=== PATIENT | male | born 1975 | race Caucasian/White ===

== ENCOUNTER 2017-10-24 19:07 | Emergency (ER) | payer OTHER ==
[~2017-10-24] VITALS: Ht 180.3 cm; Wt 124.7 kg
[~2017-10-24 19:07] MED LIST: FIORICET 50-301 EACH PO
--- NOTE | 2017-10-24 19:45 | ED CARDIAC/CP/PALPITATIONS ---
History of Present Illness General Chief Complaint: Chest Pain Stated Complaint: PT IS HAVING CHEST PAIN Source: patient Exam Limitations: no limitations Vital Signs & Intake/Output Vital Signs & Intake/Output Vital Signs Date Time Temp Pulse Resp B/P B/P Pulse O2 O2 Flow FiO2 Mean Ox Delivery Rate 10/24 2241 97.4 68 16 132/88 97 Room Air 10/24 2102 72 16 124/86 97 Room Air 10/24 2037 72 16 130/88 98 Room Air 10/24 2021 97.2 73 18 150/100 10/24 1950 97 10/24 1950 73 18 150/100 97 Room Air 10/24 1920 97.2 86 18 140/120 97 Room Air ED Intake and Output 10/25 0000 10/24 1200 Intake Total Output Total Balance Patient 275 lb Weight Weight Reported by Patient Measurement Method Allergies Coded Allergies: No Known Drug Allergies (08/04/16) Reconcile Medications Lisinopril 10 MG TABLET 1 TAB PO DAILY HYPERTENSION Methadone Hydrochloride (Methadone HCl) 10 MG TABLET 90 MG PO DAILY SUBSTANCE ABUSE (Reported) Triage Note: PT FROM HOME C/O CP THAT BEGAN 1 HR PRIOR TO PT ARRIVAL. PT STATES HE WAS SITTING ON HIS COUCH WHEN A SHARP SHOOTING CP THAT RADIATING "UP MY THROAT TO BOTH SIDES OF MY JAW" BEGAN. PT DENIES BILATERAL ARM NUMBESS/TINGLING, DENIES BACK BACK, DENIES N/V. PT STATES MINIMAL SOB THAT STARTED LAST NIGHT WHILE SLEEPING "BUT I DO HAVE SLEEP APNEA". PT IS ON METHADONE DAILY, LAST DOSE 80MG AROUND 0900 THIS MORNING. PTS BP IN TRIAGE ELEVATED 140/120 MANUALLY. PT TO ALCOVE FROM EKG. PTS HR 86, 97% ON RA. Triage Nurses Notes Reviewed? yes Onset: Abrupt Duration: better Timing: single episode today Location: substernal Radiation: neck Activities at Onset: none HPI: Patient is a 42-year-old male the past medical history of polysubstance abuse and IV drug use remotely in which patient currently is on methadone, history of obstructive sleep apnea who does not have a CPAP machine who presents emergency room seen at for approximately 2-3 months he's had once a week chest pain that lasts for approximately 6-8 hours that goes away on its own patient has not had associated symptoms with his discomfort however last week he followed up with his primary care doctor receive EKG with unremarkable findings, today patient states that 2 hours prior to arrival while at rest patient had acute onset of substernal chest tightness with radiation of discomfort and throbbing sensation to his throat and was diaphoretic and dizzy patient states that upon arrival to the emergency room his symptoms have significantly improved, patient did not take any medications for his symptoms Patient denies any history of DVT or PE denies any recent travel recent surgery leg swelling hemoptysis shortness of breath cough back pain nausea vomiting abdominal pain Patient is a former smoker denies any alcohol use Past History Travel History Traveled to [place] past 21 day No Medical History Any Pertinent Medical History? see below for history Musculoskeletal: ARTHITIS IN BACK Other Medical Hx: OBSTRUCTIVE SLEEP APNEA Surgical History Surgical History: non-contributory Psychosocial History What is your primary language Estonian Tobacco Use: Current Daily Use Daily Tobacco Use Amount/Type: Smokeless tobacco daily ETOH Use: denies use Illicit Drug Use: denies illicit drug use Family History Hx Contributory? No Review of Systems Review of Systems Constitutional: Reports: no symptoms. EENTM: Reports: see HPI. Respiratory: Reports: see HPI. Cardiovascular: Reports: see HPI. GI: Reports: no symptoms. Genitourinary: Reports: no symptoms. Musculoskeletal: Reports: no symptoms. Skin: Reports: no symptoms. Neurological/Psychological: Reports: no symptoms. Hematologic/Endocrine: Reports: no symptoms. Immunologic/Allergic: Reports: no symptoms. All Other Systems: Reviewed and Negative Physical Exam Physical Exam General Appearance: no apparent distress, obese Head: atraumatic Eyes: Bilateral: normal appearance, PERRL, EOMI. Ears, Nose, Throat: normal pharynx, normal ENT inspection Neck: normal inspection, supple Respiratory: normal breath sounds, chest non-tender, no respiratory distress Cardiovascular: regular rate/rhythm Peripheral Pulses: 2+ radial (R) Gastrointestinal: normal bowel sounds, soft, non-tender Extremities: normal inspection, normal capillary refill, no edema Skin: intact, normal color, warm/dry Core Measures ACS in differential dx? Yes CVA/TIA Diagnosis No Sepsis Present: No Sepsis Focused Exam Completed? No Progress Differential Diagnosis: AMI, aortic dissection, atrial fibrillation, cholecystitis, CHF/pulm edema, costochondritis, hyperkalemia, hypovolemia, hyperthyroid, hyperventilation, intracranial hemorrhage, musculoskeletal pain, myocarditis, pancreatitis, pericarditis, pneumonia, pneumothorax, PSVT, pulmonary embolism, PUD/GERD, PVCs/PACs, respiratory failure, rib fracture, sepsis, unstable angina, V-fib/V-Tach, WPW syndrome Plan of Care: Orders Procedure Date/time Status TROPONIN LEVEL 10/24 2354 Complete EKG 10/24 2354 Active Telemetry/Salesperson Burial Needs 10/24 1955 Active TROPONIN LEVEL 10/24 1914 Complete PROTHROMBIN TIME 10/24 1914 Complete COMPREHENSIVE METABOLIC PANEL 10/24 1914 Complete CBC WITHOUT DIFFERENTIAL 10/24 1914 Complete EKG 10/24 1908 Active Laboratory Tests 10/25/17 0012: Troponin I < 0.01 10/24/172100: Anion Gap 12, Estimated GFR > 60, BUN/Creatinine Ratio 21.3, Glucose 95, Calcium 9.0, Total Bilirubin 0.2, AST 23, ALT 45, Alkaline Phosphatase 97, Troponin I < 0.01, Total Protein 6.9, Albumin 4.0, Globulin 2.9, Albumin/Globulin Ratio 1.4 10/24/172004: PT 11.5, INR 1.10, CBC w Diff NO MAN DIFF REQ, RBC 4.92, MCV 88.3, MCH 29.5, RDW 13.6, MPV 6.9 L, Gran % 38.1 L, Lymphocytes % 53.7 H, Monocytes % 5.8, Eosinophils % 2.0, Basophils % 0.4, Absolute Granulocytes 4.2, Absolute Lymphocytes 5.9 H, Absolute Monocytes 0.6, Absolute Eosinophils 0.2, Absolute Basophils 0, PUBS MCHC 33.4 Patient on initial examination was resting comfortably at bedside and denies any chest pain however bus driver/monitor placed patient was therapeutically administered aspirin Patient will receive second set troponin PERC ZERO 2129- patient was reevaluated no apparent distress and DENIES any chest pain asymptomatic 2255- PATIENT WAS RE-EVALUATED NAD, patient denies any symptoms no chest pain bus driver/monitor still indicates normal sinus rhythm Blood pressure is normotensive 0024- patient again resting complete bedside no apparent distress asymptomatic repeat EKG unremarkable repeat troponin pending Patient was strongly advised to follow up with cardiology and to begin lisinopril and to return to emergency room if symptoms worsen Repeat troponin was unremarkable upon discharge patient looks WELL,NAD and will comply with discharge instructions and had no questions Diagnostic Imaging: Viewed by Me: CT Scan. CXR Impression: no acute abnormality, no infiltrates Initial ED EKG: NSR 75 BPM Repeat EKG: unchanged (77 BPM,NSR) Comments: PATIENT: ELEONORA DASILVA PRESENT AGE: 42 PATIENT ACCOUNT NO: [id number] : 74 LOCATION: [facility] ORDERING PHYSICIAN: Billy JHA SERVICE DATE: 10/24/17 EXAM TYPE: RAD - XRY-CHEST XRAY, TWO VIEWS EXAMINATION: XR CHEST 2 VIEWS CLINICAL INFORMATION: Chest pain. COMPARISON: None. TECHNIQUE: Frontal and lateral views of the chest were obtained. FINDINGS: The heart, great vessels, pulmonary vasculature and mediastinum are normal. The lungs show no focal infiltrate, effusion or pneumothorax. There is no acute osseous abnormality. IMPRESSION: No active cardiopulmonary disease. DICTATED BY: Horacio Ferro MD Departure Departure Disposition: HOME OR SELF CARE Condition: Stable Clinical Impression Primary Impression: Chest pain Secondary Impressions: Hypertension Referrals: Patient Has No Primary Care Dr (PCP/Family) Additional Instructions: As discussed if symptoms worsen or if YOU develop new concerning symptom return to emergency him, please follow-up with log feeder Dr. Cedillo for further evaluation treatment on Thursday Begin the prescription of lisinopril as directed to improve your blood pressure Prescriptions waiting at [facility] Departure Forms: Customer Survey General Discharge Information Prescriptions: Current Visit Scripts Lisinopril 1 TAB PO DAILY #30 TAB Critical Care Note Critical Care Note Critical Care Time: non-applicable
[2017-10-24] MEDS ORDERED: METHADONE HCL10 M1 PO (20:09)
[2017-10-24 20:13] LABS: ABSOLUTE BASOPHIL COUNT 0 /CUMM (0.0-0.2); ABSOLUTE EOSINOPHIL COUNT 0.2 /CUMM (0.0-0.7); ABSOLUTE GRANULOCYTE CT 4.2 /CUMM (1.4-6.5); ABSOLUTE LYMPH COUNT 5.9 /CUMM (1.2-3.4); ABSOLUTE MONOCYTE COUNT 0.6 /CUMM (0.10-0.60); BASOPHIL % 0.4 % (0.0-2.0); GRANULOCYTE % 38.1 % (42.2-75.2); HEMATOCRIT 43.4 % (42-52); MEAN CORPUSCULAR HGB 29.5 PG (27.0-31.0); MEAN CORPUSCULAR HGB CONC 33.4 G/DL (33.0-37.0); MEAN CORPUSCULAR VOLUME 88.3 FL (80.0-94.0); MEAN PLATELET VOLUME 6.9 FL (7.4-10.4); PLATELET COUNT 298 /CUMM (130-400); RBC DISTRIBUTION WIDTH 13.6 % (11.5-14.5); RED BLOOD CELL CT 4.92 /CUMM (4.70-6.10)
[2017-10-24 20:25] LABS: PT 11.5 SEC (9.4-12.5)
--- NOTE | 2017-10-24 20:58 | RADIOLOGY REPORT ---
EXAMINATION: XR CHEST 2 VIEWS CLINICAL INFORMATION: Chest pain. COMPARISON: None. TECHNIQUE: Frontal and lateral views of the chest were obtained. FINDINGS: The heart, great vessels, pulmonary vasculature and mediastinum are normal. The lungs show no focal infiltrate, effusion or pneumothorax. There is no acute osseous abnormality. IMPRESSION: No active cardiopulmonary disease.
[2017-10-25] MEDS ORDERED: LISINOPRIL10 M1 PO (00:17)
[2017-10-25 01:16] VITALS: BP 132/83
== END 2017-10-25 01:18 ==
LOC: ERH 19:07
PROVIDERS: Physician Assistant Medical
DX: R07.89 Other chest pain (principal); I10 Essential (primary) hypertension; Z72.0 Tobacco use
CPT/HCPCS: 71046; 93005; 93010; 96374